=== PATIENT | male | born 1975 | race Caucasian/White ===

== ENCOUNTER 2020-07-04 13:55 | Emergency (ER) | payer SELFPAY ==
[2020-07-04 14:02] VITALS: BP 134/81; PULSE 84; RESP 16; TEMP 36.5; O2SAT 99
--- NOTE | 2020-07-04 14:35 | W.ED.GENAD ---
Discharge Plan Disposition Patient Disposition: HOME Condition: Good Discharge Details Clinical Impression: Hand laceration Primary Care Provider: None,None ED Provider: Brittany Lincoln Home Meds and New Rx's Prescriptions: No Action No Known Home Meds RF: 0 Discharge Instructions Instructions: Laceration (ED) Additional Instructions: Keep wound clean, dry, covered. Tylenol and ibuprofen as needed for discomfort. Wear gloves when appropriate to protect and prevent infection. Monitor for signs infection including redness, warmth, drainage, increased pain, fever/chills. If you develop these or other new/worsening symptoms please seek care urgently once again. Otherwise, please return and 1 week for suture removal. Discharge Data Discharge Date/Time-TO BE ENTERED AT DEPARTURE: 07/04/20 15:03 Medical Decision Making Patient is a pleasant RHD 45 year old male presenting today with c/c of laceration to the right palm. Patient was cutting wood and suffered laceration. Needs tetanus updated. Patient has a 1.5cm irregularly shaped laceration as drawn above. No sensory deficit. Able to visualize the depth of the wound well with no FB or debris noted. Deep structures intact. Patient and I discussed wound care options. Based on location and how easily it opens, sutures were recommended. We discussed risks/benefits of closure as well as procedural steps. He voices understanding and wishes to proceed. Please see procedure note. Patient tolerated this well. Would was copiously irrigated, no FB or debris noted. #2 sutures were placed. Wound edges reapproximated well. MILADY wrap and sterile dressing was applied. Patient is a lujan, I advised that the MILADY may help to protect the wound during fragile healing period. Patient and I discussed wound care in depth. Return precautions discussed, in particular, signs of infection. All of his quesitons and concerns were addressed, he is in agreement with this plan. HPI General Mode of arrival: ambulatory. Date/Time Provider Initiated Documentation: 07/04/20 14:13. Limitations to Documentation: no limitations. Information obtained by: patient and RN notes reviewed. History of Present Illness 45 year old M presents to the emergency department with the chief complaint of laceration right hand, described as mild, with intensity rated at 1. Quality is described as aching, and is localized to the right and upper extremity. Patient reports no radiation. Patient started experiencing this minute(s) and it has been constant. No relieving factors improve symptom(s), No exacerbating factors reported . Patient notes no other symptoms.. Patient did receive the following treatments prior to arrival, none Related Data Home Medications Medication Instructions Recorded Confirmed Unknown [No Known Home Meds] 07/04/20 07/04/20 Allergies Allergy/AdvReac Type Severity Reaction Status Date / Time No Known Allergies Allergy Unverified 07/04/20 14:05 General Stated Complaint: Laceration KODY: 4 Review of Systems Constitutional Constitutional: Reports as per HPI, Denies chills and Denies fever(s) Musculoskeletal Musculoskeletal: Reports as per HPI Integumentary/Breasts Skin/Breast: Reports as per HPI Neurologic Neurologic: Reports as per HPI, Denies sensory deficit and Denies paresthesias [facility] Social History Smoking/Tobacco Use Status: Current every day Smoking risk assessment performed?: Yes Drug use: Occasionally Substance use type: marijuana Exam Const General: cooperative, healthy appearing, comfortable, no acute distress and well developed Nutritional Appearance: average body habitus and well nourished Orientation: alert and awake Resp Effort & Inspection: normal respiratory effort, able to speak in complete sentences and no respiratory distress Cardio Rate: regular rate Rhythm: regular rhythm Skin Trauma: laceration (as below) Neuro General: patient alert and patient awake Cognition: normal cognition Speech: speech normal Gait: normal gait Sensory Exam: no sensory deficits noted Extrem Hand/finger images: 1. 1.5cm irregularly shaped laceration into the subQ tissue. Full ROM, ligamentously intact. No evidence of deep structure injury, no bone involvement. Sensation intact. Psych Appearance: grossly normal and well kempt Mental Status: mental status grossly normal Speech and Movement: speech and movement normal Course Vital Signs Vital signs: Vital Signs Temperature 36.5 C 07/04/20 14:02 Pulse 84 07/04/20 14:02 Respiratory Rate 16 07/04/20 14:02 Blood Pressure 134/81 07/04/20 14:02 Pulse Oximetry 99 07/04/20 14:02 Temperature 36.5 C 07/04/20 14:02 Temperature Source Skin 07/04/20 14:02 Pulse 84 07/04/20 14:02 Respiratory Rate 16 07/04/20 14:02 Respiratory Effort Non-Labored 07/04/20 14:02 Blood Pressure 134/81 07/04/20 14:02 Pulse Oximetry 99 07/04/20 14:02 Oxygen Delivery Method Room Air 07/04/20 14:02 Oxygen Flow Rate 0 07/04/20 14:02 Pain Level 2 07/04/20 14:09 Procedures Laceration Laceration 1: Site: hand Side (If applicable): right Size (cm): 1.5 Description: irregular Depth: simple, single layer Local Anesthetic: Lidocaine 1% Amount of anesthesia used (mL): 3 Pre-repair: wound explored, irrigated extensively and deep structures intact Skin layer closed with: nylon Size (cm): 4-0 Number of sutures: 2 Technique: simple, interrupted
== END 2020-07-04 15:03 | disposition home or self-care (01) ==
LOC: ER 15:00
PROVIDERS: Emergency Provider Physician Assistant
DX: S61.411A Laceration without foreign body of right hand, initial encounter (principal); W26.0XXA Contact with knife, initial encounter
CPT/HCPCS: 12001; 90471